=== PATIENT | female | born 2000 | race Caucasian/White ===

== ENCOUNTER 2019-06-25 18:28 | Emergency (ER) | payer OTHER ==
[2019-06-25 18:44] VITALS: BP 121/79
--- OUTSIDE RECORDS SUMMARY | 2019-06-25 19:21 | XMS REPORT | Summary of Care ---
:2000 Author Organization [facility] Address [address] [place] [address] Care Team Providers Name Role Phone Estefanía Eastman Primary Care Provider Reason for Visit Reason Comments Headache Procedure/Treatment (Routine) Status Reason Specialty Diagnoses / Referred By Referred To Procedures Contact Contact Authorized Specialty Neurology / Diagnoses Chronic migraine [facility], Infusion Center Services Infusion Procedures NM INJECTION,ONABOTULINUMTOXINA MD Shirley Neurology Required Therapy [address] [facility] 4th Floor [address] [id number] [place], [place] Phone: [phone] Phone: Fax: Email: [phone] [email or web address] Encounter Details Date Type Department Care Team Description 05/09/2019 Office Visit [facility] Neurology Erin Patterson PA Intractable Infusion Center at [address] [facility] migraine without [facility] 4th Floor [address] [place] [address] status migrainosus [address] [place] [address] (Primary Dx) [address] [place] [id number] Allergies Active Allergy Reactions Severity Noted Date Comments Amitriptyline Other (See Comments) Medium 07/28/2017 Sedation and dry mouth Cashew Nut Oil Medium 07/22/2014 Kiwi-In Food 07/22/2014 Causes irritation, tongue swells Nortriptyline Other (See Comments) Medium 12/01/2017 Dry mouth Peanut-Containing Drug High 07/22/2014 Products documented as of this encounter (statuses as of 05/09/2019) Medications Medication Sig Dispensed Refills Start End Status Date Date albuterol (VENTOLIN Inhale 2 puffs 0 Active HFA) 108 (90 BASE) into the lungs MCG/ACT every 6 (six) inhalerIndications: hours as needed Asthma for Wheezing or Shortness of Breath. Indications: Asthma Cholecalciferol (RA take 1 capsule 30 each 5 Active VITAMIN D-3) 2000 by mouth once 7 units CAPS daily albuterol (PROVENTIL) Take 2.5 mg by 0 Active (2.5 MG/3ML) 0.083% nebulization nebulizer solution every 6 (six) hours as needed for Wheezing Levonorgest-Eth Estrad Take 1 tablet by 0 Active 91-Day (CAMRESE LO PO) mouth prazosin (MINIPRESS) 1 Take 2 mg by 0 Active MG capsule mouth nightly EPINEPHrine (EPIPEN Inject 0.3 mg 0 Active 1:1000) 0.3 MG/0.3ML into the muscle SOAJ as needed ARIPiprazole (ABILIFY) Take 30 mg by 0 Active 5 MG tablet mouth daily Cyanocobalamin Take by mouth 0 Active (VITAMIN B 12 PO) OnabotulinumtoxinA Inject into the 0 Active (BOTOX IM) muscle every 3 (three) months levothyroxine take 1 tablet by 30 tablet 5 Active (SYNTHROID, mouth BEFORE 9 LEVOTHROID) 50 MCG BREAKFAST tablet duloxetine (CYMBALTA) Take 60 mg by 0 Discontinued 30 MG capsule mouth daily 020 Hospital, Clinic, or Other Ordered Dose Route Frequency Start Date End Date Status Facility Administered Medication onabotulinumtoxin type A 185 Units IM Once 05/09/2019 05/09/2019 Ended (BOTOX) injection 185 UnitsIndications: Intractable migraine without aura and without status migrainosus documented as of this encounter (statuses as of 05/09/2019) Active Problems Problem Noted Date Acanthosis nigricans 07/10/2018 Obesity (BMI 30-39.9) 07/10/2018 Intracranial hypertension 05/04/2017 Insomnia, unspecified 08/27/2016 Hypothyroidism (acquired) 03/05/2016 Psychological factors affecting medical condition 11/11/2015 Intractable migraine without aura and without status migrainosus 11/09/2015 Goiter 07/30/2015 Overview: History: The patient denies family history of thyroid cancer or exposure to radiation. US 12/26o, 07/27, 02/26 Anxiety 07/22/2014 Depression 07/22/2014 documented as of this encounter (statuses as of 05/09/2019) Resolved Problems Problem Noted Date Resolved Date BMI (body mass index), pediatric, > 99% for age 1203/03/2016 07/10/2018 Pyelonephritis 07/22/2014 07/22/2014 UTI (lower urinary tract infection) 07/22/2014 07/22/2014 Right flank pain 07/22/2014 07/22/2014 Hyperreflexia of lower extremity, b/L 07/22/2014 07/22/2014 Lower extremity weakness, b/L 07/22/2014 07/22/2014 Occasional tremors, b/L LE 07/22/2014 07/22/2014 Cystitis 07/22/2014 11/09/2015 Complicated migraine 07/22/2014 11/09/2015 Fever 07/22/2014 07/22/2014 Sleep disturbance 07/22/2014 07/30/2015 Status migrainosus 02/12/2017 documented as of this encounter (statuses as of 05/09/2019) Social History Tobacco Use Types Packs/Day Years Used Date Never Smoker Cigarettes 01/12/2015 - 06/11/2015 Smokeless Tobacco: Never Used Alcohol Use Drinks/Week oz/Week Comments Yes 0 Standard drinks or equivalent 0.0 occasionally Sex Assigned at Date Recorded Not on file Job Start Date Occupation Industry Not on file Not on file Not on file Travel History Travel Start Travel End No recent travel history available. documented as of this encounter Last Filed Vital Signs Not on filedocumented in this encounter Progress Notes Erin Patterson PA - 05/09/2019 2:30 PM EST [facility] Date Of Service: 05/09/2019 Diagnosis: Chronic Migraine History: Paulette is a 19 y.o. year old Female with chronic migraine headaches who has failed multiple medical interventions. Notes about 2-3 weeks prior she has an increase in both frequency and intensity. Otherwise feels Botox helps by about 40-50% in both intensity and frequency. Medications: Outpatient Medications Marked as Taking for the 05/09/19 encounter (Office Visit ) with JORGE Huerta Medication Sig Dispense Refill Extra Info albuterol (PROVENTIL) (2.5 MG/3ML) 0.083% nebulizer solution Take 2.5 mg by nebulization every 6 (six) hours as needed for Wheezing 1 albuterol (VENTOLIN HFA) 108 (90 BASE) MCG/ACT inhaler Inhale 2 puffs into the lungs every 6 (six) hours as needed for Wheezing or Shortness of Breath. Indications: Asthma 1 ARIPiprazole (ABILIFY) 5 MG tablet Take 30 mg by mouth daily 1 Cholecalciferol (RA VITAMIN D-3) 2000 units CAPS take 1 capsule by mouth once daily 30 each 51 Cyanocobalamin (VITAMIN B 12 PO) Take by mouth 1 EPINEPHrine (EPIPEN 1:1000) 0.3 MG/0.3ML SOAJ Inject 0.3 mg into the muscle as needed 1 Levonorgest-Eth Estrad 91-Day (CAMRESE LO PO) Take 1 tablet by mouth 1 levothyroxine (SYNTHROID, LEVOTHROID) 50 MCG tablet take 1 tablet by mouth BEFORE BREAKFAST 30 tablet 5 1 OnabotulinumtoxinA (BOTOX IM) Inject into the muscle every 3 (three) months 1 prazosin (MINIPRESS) 1 MG capsule Take 2 mg by mouth nightly 1 Current Facility-Administered Medications for the 05/09/19 encounter (Office Visit) with JORGE Huerta Medication Dose Route Frequency Provider Last Rate Last Dose Extra Info [COMPLETED] onabotulinumtoxin type A (BOTOX) injection 185 Units 185 Units Intramuscular Once JORGE Huerta 185 Units at 05/09/19 1436 1 Risk of Botox therapy were explained, including neck pain and/or weakness, headache, eye lid droopiness, facial muscle weakness, and hypersensitivity. Patient understands risks and wishes to proceed. The patient was advised that Botox Injection may not be effective in relieving the chronic headaches.The patient has failed multiple interventions, so I agree that Botox is the most appropriate treatment. Botulinum toxin concentrations, 5 units per .1 cc. Under sterile and controlled conditions using aseptic technique, botulinum toxin type A was administered. A 30 gauge needle was used. The following muscles were injected. 1. Right Frontalis, 2 sites, 5 units one site and 10 units the second for a total of 15 units. 2. Left Frontalis, 2 sites, 5 units one site and 10 units the second for a total of 15 units. 3. Right Developer Relations Manager, 1 site, 5 units per site for a total of 5 units. 4. Left Developer Relations Manager, 1 site, 5 units per site for a total of 5 units. 5. Procerus, 1 site, 5 units per site for a total of 5 units. 6. Right Temporalis, 4 sites, 5 units per site except for 1 of 10 units for a total of 25 units. 7. Left Temporalis, 4 sites, 5 units per site except for 1 of 10 units for a total of 25 units. 8. Right Occipitalis, 3 sites, 5 units per site for a total of 15 units. 9. Left Occipitalis, 3 sites, 5 units per site for a total of 15 units. 10. Right Cervical Paraspinal, 2 sites, 5 units per site for a total of 10 units. 11. Left Cervical Paraspinal, 2 sites, 5 units per site for a total of 10 units. 12. Right Trapezius, 3 sites, 5 units per site except for 1 of 10 units for a total of 20 units. 13. Left Trapezius, 3 sites, 5 units per site except for 1 of 10 units for a total of 20 units. In all, 185 units of botulinum toxin were injected and 15 units were discarded. The patient tolerated the procedure without adverse side effects. Post injection instructions are given. She will return for a reevaluation and treatment in 3 months.Electronically signed by JORGE Huerta at 2019 2:40 PM ESTdocumented in this encounter Plan of Treatment Date Type Specialty Care Team Description 06/25/2019 Office Visit Neurology Shirley Suarez MD [address] [place] [address] 4th [address] [place] [address] [phone] 08/08/2019 Office Visit Infusion Therapy Health Maintenance Due Date Last Done Comments MMR Vaccines (1 of 1 - Standard 1999 series) Varicella Vaccines (1 of 2 - 1999 2-dose childhood series) DTaP,Tdap,and Td Vaccines (1 - 2005 Tdap) HPV Vaccines (1 - Female 2-dose 2009 series) HIV Screening 2011 Chlamydia Screening 2014 Influenza Vaccine 12/12/2018 Cervical Cancer Screening 3 years 2019 Pneumococcal Vaccine: 65+ Years (1 2063 of 2 - PCV13) HIB Vaccines Aged Out No longer eligible based on patient's age to complete this topic Hepatitis A Vaccines Aged Out No longer eligible based on patient's age to complete this topic Hepatitis B Vaccines Aged Out No longer eligible based on patient's age to complete this topic IPV Vaccines Aged Out No longer eligible based on patient's age to complete this topic Pneumococcal Vaccine: Pediatrics Aged Out No longer eligible based on (0 to 5 Years) and At-Risk patient's age to complete this Patients (6 to 64 Years) topic documented as of this encounter Results Not on filedocumented in this encounter Visit Diagnoses Diagnosis Intractable migraine without aura and without status migrainosus - Primary Migraine without aura, with intractable migraine, so stated, without mention of status migrainosus documented in this encounter Administered Medications Medication Order MAR Action Action Date Dose Rate Site onabotulinumtoxin type A (BOTOX) Given 05/09/2019 2:36 PM 185 Units Other injection 185 Units EST 185 Units, Intramuscular, Once, Tue05/09/19 at 1445, For 1 dose documented in this encounter
--- NOTE | 2019-06-25 19:22 | UC ---
HPI Febrile Illness - HPI Summary HPI Summary: Nurse's notes: 2 concerns: (pt denies any respiratory symptoms) #1 possible UTI--low back pain started around 1400 today, denies burning/pain with urination, no frequency, fever started today #2 possible abscess on right buttock x3 days worsening today See nurse's notes above. Patient denies any cold symptoms, no runny nose, no congestion, no cough. She states low back pain and fever started today so she thought she might have a urinary tract infection however she's had no other symptoms of a UTI. She also states that she has a small tender area on her right buttock which she thinks is an abscess. She has had one abscess in her lifetime before on her leg and she wanted that checked. She denies any nausea vomiting or diarrhea. She is sexually active and on control. She denies any abnormal vaginal discharge. - History of Current Complaint Chief Complaint: UCGU Time Seen by Provider: 06/25/19 18:32 Hx Obtained From: Patient Hx Last Menstrual Period: 05/26/19 on BCP's/gets menses [id number] Onset/Duration: Started Hours Ago Timing: Constant Initial Severity: Mild Current Severity: Moderate Pain Intensity: 6 Aggravating Factors: Nothing Alleviating Factors: Nothing - Patient has not taken any antipyretics. - Allergy/Home Medications Allergies/Adverse Reactions: Allergies Allergy/AdvReac Type Severity Reaction Status Date / Time No Known Allergies Allergy Verified 06/25/19 18:44 Home Medications: Home Medications ARIPiprazole TAB* [Abilify 15 MG TAB*] 30 mg PO BEDTIME 06/25/19 [History Confirmed 06/25/19] DULoxetine CAP* [Cymbalta CAP*] 20 mg PO BEDTIME 06/25/19 [History Confirmed 06/25/19] Levothyroxine TAB* [Synthroid TAB*] 50 mcg PO DAILY 06/25/19 [History Confirmed 06/25/19] Prazosin HCl [Minipress] 2 mg PO BEDTIME 06/25/19 [History Confirmed 06/25/19] l-Norgest/E.estradiol-E.estrad [Loseasonique Tablet] 1 each PO DAILY 06/25/19 [ History Confirmed 06/25/19] PMH/Surg Hx/FS Hx/Imm Hx Previously Healthy: Yes Endocrine History: Thyroid Disease Respiratory History: Asthma - Surgical History Surgical History: Yes Surgery Procedure, Year, and Place: appy 2009. sty removed - Family History Known Family History: Positive: Unknown - Social History Occupation: Employed Full-time Alcohol Use: None Substance Use Type: Marijuana Substance Use Comment - Amount & Last Used: occasional Smoking Status (MU): Never Smoked Tobacco Review of Systems All Other Systems Reviewed And Are Negative: Yes Constitutional: Positive: Fever Skin: Positive: Other - Pt states she thinks she has an abscess on her right buttock which has been there over the past 3 days. Increased tenderness today. Is Patient Immunocompromised?: No Physical Exam Triage Information Reviewed: Yes Appearance: Well-Appearing, No Pain Distress, Well-Nourished Vital Signs: Initial Vital Signs Temp 102.7 F 06/25/19 18:35 Pulse 130 06/25/19 18:35 Resp 16 06/25/19 18:35 BP 121/79 06/25/19 18:35 Pulse Ox 100 06/25/19 18:35 Vital Signs Reviewed: Yes Eyes: Positive: Conjunctiva Clear ENT: Positive: Hearing grossly normal, Pharynx normal, TMs normal, Uvula midline Neck: Positive: Supple, Nontender, No Lymphadenopathy Respiratory: Positive: Lungs clear, Normal breath sounds, No respiratory distress, No accessory muscle use Cardiovascular: Positive: No Murmur, Pulses Normal, Brisk Capillary Refill, Tachycardia Abdomen Description: Positive: Nontender, No Organomegaly, Soft. Negative: CVA Tenderness (R), CVA Tenderness (L), Distended, Guarding, Hepatomegaly, Splenomegaly Bowel Sounds: Positive: Present Musculoskeletal Exam: Normal Neurological Exam: Normal Psychological Exam: Normal Skin: Positive: Other - The patient has a very small approximately 1 mm abrasion to the right buttock where she may have scratched the area. There is a very minimal firmness at that area approximately 10 mm in diameter with tenderness on palpation but no erythema, no swelling, no pus drainage. Course/Dx - Course Course Of Treatment: The patient had confirmed to the nurse that she had no concerns about Covid 19. I wore a mask while I was talking to the patient and examining her. Her primary care provider is in [place]. I inquired as to why she was in the [facility] and she stated she was "quarantining with my brother". She denied having any exposure to anyone with Covid 19 and she does not know anyone who is being tested. She again denied any symptoms relative to Covid 19. All of this information had already been relayed to the nurse prior to my entrance into the room. I asked the patient if she was worried about Covid-19 and she stated "yes". I asked her if she wanted to be tested and she stated "yes." Her urine showed 2+ blood however she had stated to me she was spotting today and thought that made be due to her menstrual period starting. Urinalysis was negative for white blood cells or nitrates. Although the patient looks good, I am referring her to the emergency room for further workup because of her fever and she meets criteria for sepsis workup. Patient is agreeable to going to the emergency room. Prior to leaving with full PPE in place, Covid-19 swab was obtained, the patient tolerated the procedure well. I spoke with Eli the nurse practitioner in the emergency department and gave her report on the patient. She was discharged stable, ambulatory and was advised to go directly to the emergency room and keep her mask on at all times. She is agreeable to this plan of action. - Diagnoses Provider Diagnosis: Fever Discharge ED - Sign-Out/Discharge Documenting (check all that apply): Patient Departure All imaging exams completed and their final reports reviewed: No Studies - Discharge Plan Condition: Fair Disposition: HOME-RECOMMEND TO ED Forms: COVID-19 Tested & Isolation Referrals: No Primary Care Phys,NOPCP [Primary Care Provider] - Additional Instructions: Go directly to the emergency room for further evaluation and treatment. Keep your mask on at all times. - Billing Disposition and Condition Condition: FAIR Disposition: Home-Recommend to ED - Attestation Statements Provider Attestation: This patient was not seen by me. This patient was presented to me and I agree she should be evaluated at an ER JLD
--- NOTE | 2019-06-28 08:21 | UC ---
- Progress Note Progress Note: Please advise patient that COVID testing is negative. She was referred to the emergency room for sepsis work up due to fever and tachycardia; please check outcome. Course/Dx - Diagnoses Provider Diagnoses: Fever Discharge ED - Sign-Out/Discharge Documenting (check all that apply): Post-Discharge Follow Up All imaging exams completed and their final reports reviewed: No Studies - Discharge Plan Condition: Fair Disposition: HOME-RECOMMEND TO ED Forms: COVID-19 Tested & Isolation Referrals: No Primary Care Phys,NOPCP [Primary Care Provider] - Additional Instructions: Go directly to the emergency room for further evaluation and treatment. Keep your mask on at all times. - Billing Disposition and Condition Condition: FAIR Disposition: Home-Recommend to ED
== END 2019-06-25 19:32 | disposition home health service (06) ==
LOC: UCCORT 18:28
DX: R50.9 Fever, unspecified (principal); M54.5 Low back pain; S30.810A Abrasion of lower back and pelvis, initial encounter; X58.XXXA Exposure to other specified factors, initial encounter; Y92.9 Unspecified place or not applicable; Z20.828 Contact with and (suspected) exposure to other viral communicable diseases; E07.9 Disorder of thyroid, unspecified; Z79.890 Hormone replacement therapy
CPT/HCPCS: 81003; 84702; 87086; 87635; 99202; G0463; G2023